=== PATIENT | male | born 1995 | race Two or more races ===

== ENCOUNTER 2016-05-03 09:00 | Emergency (ER) | payer OTHER ==
[~2016-05-03] VITALS: Ht 172.7 cm; Wt 59.9 kg
[2016-05-03] MEDS ORDERED: DIVA500T2 PO (09:05)
[2016-05-03] MEDS ORDERED: LORAZEPAM INJ 2 MG/ML VIAL ONE (09:29)
[2016-05-03] MEDS: LORAZEPAM INJ 2 MG/ML VIAL IVP ONE (09:32)
[2016-05-03 09:33] LABS: BASOPHILS % (AUTO) 0.4 % (0.0-2.0); DIFF TOTAL % 100 %; EOSINOPHILS # (AUTO) 0.1 /CMM (0.0-0.7); EOSINOPHILS % (AUTO) 1.6 % (0.0-6.0); HEMATOCRIT 45 % (39-51); LYMPHOCYTES # (AUTO) 2.7 /CMM (0.8-4.8); LYMPHOCYTES % (AUTO) 38.4 % (20.0-44.0); MEAN CORPUSCULAR HEMOGLOBIN 27 PG (26.0-33.0); MEAN CORPUSCULAR HGB CONC 33 g/dl (31.0-36.0); MEAN CORPUSCULAR VOLUME 81 fL (80-96); MONOCYTES # (AUTO) 0.4 /CMM (0.1-1.30); MONOCYTES % (AUTO) 5.6 % (2.0-12.0); NEUTROPHILS # (AUTO) 3.7 /CMM (1.8-8.9); PLATELET COUNT (AUTO) 253 /CMM (150-450); RED BLOOD CELL COUNT(AUTO) 5.53 MIL/uL (4.5-6.0); WHITE BLOOD COUNT (AUTO) 6.9 K/uL (4.3-11.0)
[2016-05-03 09:50] LABS: ANION GAP 19 (5-14); CALCIUM, SERUM 9.3 mg/dL (8.5-10.1); CARBON DIOXIDE 23 mmol/L (21-32); CHLORIDE 104 mmol/L (98-107); GFR 96 mL/min (>60); GLUCOSE 84 mg/dL (74-106); POTASSIUM 4.2 mmol/L (3.5-5.1); SODIUM SERUM 142 mmol/L (136-145); UREA NITROGEN, BLOOD 12 mg/dL (7-18)
[2016-05-03 09:54] LABS: ALANINE AMINOTRANSFERASE 19 U/L (12-78); ASPARTATE AMINOTRANSFERASE 19 U/L (15-37); BILIRUBIN,DIRECT 0.1 mg/dL (0.0-0.2); BILIRUBIN,TOTAL 0.3 mg/dL (0.2-1.0); INDIRECT BILIRUBIN 0.2 mg/dL (0.0-1.1); TOTAL PROTEIN, SERUM 7.6 g/dL (6.4-8.2)
[2016-05-03 10:23] LABS: VALPROIC ACID < 3 ug/mL (50-100)
[2016-05-03] MEDS ORDERED: IV SET PRIMARY PUMP SET 1 EA INFUS.SET MC ONE (12:03)
[2016-05-03] MEDS: VALPROATE 500 MG in IV D5W 100 ML IV SCH (12:09)
[2016-05-03 13:16] VITALS: BP 131/78
== END 2016-05-03 13:17 | disposition home or self-care (01) ==
LOC: ER 09:04
DX: G40.909 Epilepsy, unspecified, not intractable, without status epilepticus (principal)
CPT/HCPCS: 36415; 70450; 80048; 80076; 80164; 85025; 96361; 96374; 99285; A4606; J2060; J3490; J7060; Z7610

== ENCOUNTER 2022-03-03 13:25 | Emergency (ER) | payer OTHER ==
[~2022-03-03] VITALS: Ht 177.8 cm; Wt 68.0 kg
[~2022-03-03 13:25] MED LIST: DIVA500T2 PO
--- NOTE | 2022-03-03 13:35 | NUR ---
TRIPPED/FELL GOING DOWN STAIRS 2 DAYS AGO, C/O LEFT ANKLE PAIN/SWELLING
--- NOTE | 2022-03-03 14:00 | NUR ---
AT BED SIDE FOR EVAL
[2022-03-03] MEDS ORDERED: IBUP-1953 PO (15:01)
[2022-03-03] MEDS ORDERED: HYDR-3976 PO (15:01)
--- NOTE | 2022-03-03 15:11 | NUR ---
SHORT LEG SUGAR TONG SPLINT PLACED BY EMT , PROVIDED [employer] TEACHING ABOUT 3 POINT GAIT. PT VERBALIZED UNDERSTANDING
[2022-03-03 15:57] VITALS: BP 120/84
--- NOTE | 2022-03-03 15:57 | NUR ---
Patient discharged to home in stable condition. Written and verbal after care instructions given. Patient verbalizes understanding of instruction.
== END 2022-03-03 15:57 | disposition home or self-care (01) ==
LOC: ER 14:07
DX: S82.62XA Displaced fracture of lateral malleolus of left fibula, initial encounter for closed fracture (principal); Z79.899 Other long term (current) drug therapy; W01.0XXA Fall on same level from slipping, tripping and stumbling without subsequent striking against object, initial encounter; Y93.89 Activity, other specified; Y92.89 Other specified places as the place of occurrence of the external cause; Y99.8 Other external cause status
CPT/HCPCS: 73610-TC